=== PATIENT | male | born 2000 | race Caucasian/White ===

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

== ENCOUNTER 2021-11-08 18:16 | Emergency (ER) | payer OTHER ==
[~2021-11-08] VITALS: Ht 165.1 cm; Wt 72.6 kg
[2021-11-08 18:54] VITALS: BP 108/64
[2021-11-08 19:47] VITALS: BP 108/64
[2021-11-08] MEDS ORDERED: BENZ100C6 PO (20:21)
[2021-11-08] MEDS ORDERED: PRED20TA5 PO (20:21)
== END 2021-11-08 21:13 | disposition home or self-care (01) ==
LOC: MED 18:16
DX: R05.9 Cough, unspecified (principal); Z20.822 Contact with and (suspected) exposure to COVID-19; I25.10 Atherosclerotic heart disease of native coronary artery without angina pectoris
CPT/HCPCS: 71045; 87426; 99284; Q0092